=== PATIENT | female | born 1980 | race Caucasian/White ===

== ENCOUNTER → 2017-03-07 | Outpatient (CLI) | payer BC ==
[~2017-03-07] MED LIST: ACETAMINOPHEN PO; ADVIL100 MG PO; ALAVERT10 MG/TAB PO; ALBUTEROL17 GM INH; AMOXICILLIN500 M1 PO; BENZONATATE PO; CARAFATE1 G PO; CIPRO PO; CLARITIN10 MG PO; DICYCLOMINE HCL20 MG PO; DIFLUCAN PO; FLAGYL PO; LOESTRIN1 TA1; MOTRIN600 MG PO; NO MEDICATIONS; OMEPRAZOLE20 M2; PHENERGAN PO; PREDNISONE PO; PROVENTIL INH0.5 ML HHN; RELIEF PO; ROBITUSSIN A-C S5 ML PO; VOLTAREN75 MG PO; ZANTAC; ZANTAC150 M1 PO; ZITHROMAX1 G/PKT PO; ZOFRAN ODT4 MG PO
--- NOTE | ~2017-03-07 | CT71 ---
[facility] A Service of [facility] RADIOLOGY TEXT RESULTS PATIENT: YARELI BRANNON LOCATION: [facility] : 76 UNIT #: [id number] AGE: [address]: SHAGGY LEARY SEX: F ORDER DR: [id number] [place] [id number] O MR#: [id number] Acc #: [id number] NAME: YARELI BRANNON : 1980 SEX: F STUDY DATE/TIME: 03/07/2017 8:41 UNIT: SCT ROOM: STUDY DESCRIPTION: CT Head Wo Contrast Attending Physician: Shaggy Leary Aprn Referring Physician: Shaggy Leary Aprn Ordering Physician: Shaggy Leary Aprn Primary Care Physician: David Wong D.O. MEDICAL IMAGING REPORT This report is preliminary unless electronic signature is present. EXAM Head CT without. HISTORY Vertigo, dizziness and headaches for 2 weeks, blurred vision. TECHNIQUE Routine, noncontrast head CT is reviewed. This CT exam was performed with one or more of the following radiation dose reduction techniques: automatic exposure control, adjustment of mA and/or kV according to patient size, and iterative reconstruction. COMMENT The mastoid air cells are clear. The patient has mild mucosal thickening in the ethmoid air cells and partly seen is a large mucous retention cyst or polyp in the visualized left maxillary sinus. There is no air-fluid level in the visualized paranasal sinuses. There is no evidence for acute intracranial hemorrhage or extraaxial fluid collection. The ventricles are normal in size and configuration and the bishop-white junction is well-maintained. The basilar cisterns are patent. There is no intracranial mass effect. IMPRESSION 1. No acute intracranial abnormality. 2. Partial demonstration of a large mucous retention cyst or polyp in the left maxillary sinus, but no air-fluid level in the visualized paranasal sinuses. Dictated by... [facility] A Service of [facility] RADIOLOGY TEXT RESULTS PATIENT: YARELI BRANNON LOCATION: [facility] : 76 UNIT #: [id number] AGE: [address]: SHAGGY LEARY SEX: F ORDER DR: Ronna Rodrigues M.D. THIS IS AN ELECTRONICALLY VERIFIED REPORT Ronna Rodrigues M.D. at 03/07/2017 5:11 PM RODNEY/francisca TD: 03/07/2017 12:39 JOB #: [id number] MEDICAL IMAGING REPORT Page 1 of 1
== END | disposition home or self-care (01) ==
LOC: SCT 08:40
DX: R42 Dizziness and giddiness (principal)
CPT/HCPCS: 70450

== ENCOUNTER → 2017-03-24 | Outpatient (CLI) | payer BC ==
--- NOTE | ~2017-03-24 | CT113 ---
[facility] A Service [facility] RADIOLOGY TEXT RESULTS PATIENT: YARELI BRANNON LOCATION: [facility] : 76 UNIT #: [id number] AGE: [address]: Jose Maria Martinez MD SEX: F ORDER DR: [id number] [place] [id number] O MR#: [id number] Acc #: [id number] NAME: YARELI BRANNON : 1980 SEX: F STUDY DATE/TIME: 03/24/2017 17:05 UNIT: SCT ROOM: STUDY DESCRIPTION: CT Sinuses Wo Contrast Attending Physician: Jose Maria Martinez M.D. Ordering Physician: Jose Maria Martinez M.D. Primary Care Physician: David Wong D.O. MEDICAL IMAGING REPORT This report is preliminary unless electronic signature is present. EXAM Sinus CT, no contrast, 03/24/2017. COMPARISON STUDIES Head CT, 03/07/2017 PROCEDURE Axial unenhanced sinus CT with multiplanar reformats. This CT exam was performed with one or more of the following radiation dose reduction techniques: automatic exposure control, adjustment of mA and/or kV according to patient size, and iterative reconstruction. CLINICAL HISTORY Followup for left maxillary sinus mucous retention cyst identified on head CT March 07. FINDINGS The frontal sinuses are normally pneumatized and aerated. The ethmoid air cells are normally pneumatized and normally aerated with the exception of perhaps some slight right ethmoid mucosal thickening. The sphenoid chambers are normally pneumatized and aerated with left chamber dominance. The maxillary sinuses are normally pneumatized. There is slight right inferomedial maxillary mucosal thickening and there is a large retention cyst filling the majority of the left maxillary sinus. The left maxillary infundibulum is patent and the right is narrowed and/or possibly occluded by mucosal thickening. [facility] A Service [facility] RADIOLOGY TEXT RESULTS PATIENT: YARELI BRANNON LOCATION: [facility] : 76 UNIT #: [id number] AGE: [address]: Jose Maria Martinez MD SEX: F ORDER DR: There is partial paradoxical rotation of the left middle turbinate and there is a right middle turbinate júnior bullosa. There is no bone erosion or destruction. The soft tissue structures appear normal. IMPRESSION 1. Left maxillary retention cyst, right middle turbinate júnior bullosa and left middle turbinate partial paradoxical rotation. 2. Rightward deviation of the anterior nasal septum. 3. Mild right inferomedial maxillary mucosal thickening. Dictated by... Manuel Lazcano M.D. THIS IS AN ELECTRONICALLY VERIFIED REPORT Manuel Lazcano M.D. at 03/27/2017 3:57 PM HERNANDEZ/francisca TD: 03/25/2017 11:42 JOB #: [id number] MEDICAL IMAGING REPORT Page 1 of 1
== END | disposition home or self-care (01) ==
LOC: SCT 16:25
DX: J32.9 Chronic sinusitis, unspecified (principal); M27.40 Unspecified cyst of jaw; J34.2 Deviated nasal septum
CPT/HCPCS: 70486